=== PATIENT | female | born 1985 | race Caucasian/White ===

== ENCOUNTER → 2019-08-10 | Outpatient (CLI) | payer OTHER ==
--- NOTE | 2019-08-10 15:17 | RAD ---
EXAMINATION: OB ultrasound, PREG MORE THAN OR EQ TO 14 WKS, 08/10/2019 1:30 PM CLINICAL INDICATION: , unsure of dates. LMP 04/11/2019. COMPARISON: None. TECHNIQUE: Grayscale and color Doppler ultrasound images of the pelvis according to OB protocol. FINDINGS: There is a single living intrauterine in breech position. heart rate is 155 bpm. Grade 1 anterior placenta is slightly low-lying. Detail evaluation of anatomy not performed due to early gestational age. Biparietal diameter: 3.81 cm, 17 weeks 4 days Head circumference: 13.32 cm, 16 weeks 6 days Abdominal circumference: 11.28 cm, 17 weeks 1 day Femur length: 2.17 cm, 16 weeks 3 days HC/AC ratio: 1.18 Estimated weight: 171 g Gestational age by ultrasound: 17 weeks, 0 days. Sonographic EDC: 01/18/2020. IMPRESSION: 1. Single living intrauterine with gestational age 17 weeks, 0 days by ultrasound. Sonographic EDC 01/18/2020. 2. Placenta appears to be low-lying. Recommend attention on follow-up exam. Electronically signed by: Meghann Falk MD (08/10/2019 3:14 PM) [id number]
== END | disposition home or self-care (01) ==
LOC: US 13:17
PROVIDERS: ATTEND Obstetrics & Gynecology
DX: O32.1XX0 Maternal care for breech presentation, not applicable or unspecified (principal); Z3A.17 17 weeks gestation of pregnancy
CPT/HCPCS: 76805